=== PATIENT | male | born 1955 | race Caucasian/White ===

== ENCOUNTER 2021-06-12 07:13 | Day surgery (SDC) | payer BC ==
[2021-06-06 10:05] VITALS: BP_SYST 163; BP_SYST 174; BP_DIAS 76; BP_DIAS 84
[2021-06-06 10:21] LABS: EOSINOPHILS % (AUTO) 5.8 % (0.0-8.0); HEMATOCRIT 39.3 % (42-54); LYMPHOCYTES % (AUTO) 22.1 % (21.0-51.0); MEAN CORPUSCULAR HEMOGLOBIN 31.5 pg (27.0-33.0); MEAN CORPUSCULAR HGB CONC 31.8 g/dL (32.0-36.0); NEUTROPHILS % (AUTO) 62.7 % (40.0-77.0); PLATELET COUNT (AUTO) 328 K/uL (130-400); RED BLOOD CELL COUNT(AUTO) 3.97 MIL/uL (4.50-6.20); RED CELL DISTRIBUTION WIDTH 12.5 % (11.0-15.5)
[2021-06-06 10:27] LABS: APPEARANCE,URINE Clear (CLEAR); BILIRUBIN,URINE Negative (NEGATIVE); COLOR,URINE Yellow (YELLOW); GLUCOSE, URINE (UA) Negative (NEGATIVE); KETONES,URINE Negative (NEGATIVE); LEUKOCYTE ESTERASE ,URINE Negative (NEGATIVE); NITRATE,URINE Negative (NEGATIVE); OCCULT BLOOD,URINE Negative (NEGATIVE); PROTEIN,URINE Negative (NEGATIVE); UROBILINOGEN,URINE 0.2 mg/dL (0.2-1.0)
[2021-06-06 10:38] LABS: CREATININE 0.7 mg/dL (0.5-1.5); POTASSIUM 4.1 mmol/L (3.5-5.1)
[~2021-06-12] VITALS: Ht 175.3 cm; Wt 80.5 kg
[2021-06-12] VITALS (11 sets, daily range): BP systolic 114–143; BP diastolic 63–85
[~2021-06-12 07:13] MED LIST: ATOR10 PO; CEFTRIAXONE 1G VIAL IVP SCH; GENTAMICIN 80 MG/NS 100 ML PB 100 ML IV SCH; LEVO500T89 PO; LISI20TA24 PO
[2021-06-12] MEDS ORDERED: LACTATED RINGERS 1000ML 1,000 ML IV ONE (07:40)
[2021-06-12] MEDS ORDERED: LIDOCAINE HCL 2% PF 20 ML JEL DISP.SYRIN MM ONE (08:35)
[2021-06-12] MEDS ORDERED: MIDAZOLAM HCL 1 MG/ML 2ML VIAL ONE (08:55)
[2021-06-12] MEDS ORDERED: PROPOFOL 10 MG/ML 20ML VIAL IV ONE ×2 (08:56→09:09)
== END 2021-06-12 10:20 | disposition home or self-care (01) ==
LOC: DAH 07:13
PROVIDERS: ATTEND Urology
DX: R97.20 Elevated prostate specific antigen [PSA] (principal); Z20.822 Contact with and (suspected) exposure to COVID-19; D29.1 Benign neoplasm of prostate; I10 Essential (primary) hypertension; E78.5 Hyperlipidemia, unspecified; Z79.899 Other long term (current) drug therapy; Z98.890 Other specified postprocedural states; Z80.42 Family history of malignant neoplasm of prostate
CPT/HCPCS: 36415; 55700; 76872; 80048; 81003; 85025; 87088; 87635; 93005; A4215 ×2; A4221; A4222; A4223; A4600 ×2; A4649; A4663; A6260; C9803; J0696; J2250; J2704 ×2; J7120; J1580